=== PATIENT | male | born 1995 | race Caucasian/White ===

== ENCOUNTER 2021-08-18 11:36 | Emergency (ER) | payer SELFPAY ==
[2021-08-18 11:46] VITALS: BP 132/87; PULSE 86; RESP 20; TEMP 37.2; O2SAT 96
--- NOTE | 2021-08-18 11:50 | ED.URI ---
HPI - URI/Sore Throat General Chief Complaint: Upper Respiratory Infection Stated Complaint: Sore Throat Time Seen by Provider: 08/18/21 11:50 Source: patient and RN notes reviewed History of Present Illness HPI Narrative: Patient is a 26-year-old male who presents the urgent care with complaints of a sore throat and difficulty swallowing. Patient denies of any fever, chills, nausea, vomiting, ill contacts. Patient states that he woke up with a sore throat this morning. States that he does have a chronic allergies and has had a lot of postnasal drainage. Patient has not taken anything [id number] for his symptoms. No other acute complaints. No acute distress noted. Patient aware of the plan of care. Some parts of this dictation were generated by voice recognition software and may contain typographical and/or grammatical inaccuracies. Related Data Allergies Allergy/AdvReac Type Severity Reaction Status Date / Time No Known Allergies Allergy Verified 08/18/21 11:59 Review of Systems Review of Systems: CONSTITUTIONAL: Denies fever, chills, or sweats. EYES: Denies visual changes, redness, or discharge. ENT: Reports of sore throat, swollen tonsils and postnasal drainage CARDIOVASCULAR: Denies chest pain, palpitations, or edema. RESPIRATORY: Denies cough or dyspnea. GASTROINTESTINAL: Denies abdominal pain, nausea, vomiting, or diarrhea. GENITOURINARY: Denies dysuria or hematuria. SKIN: Denies rash or itching. MUSCULOSKELETAL: Denies back pain, joint pain, or myalgia. NEUROLOGIC: Denies headache, numbness, or weakness. All other systems reviewed are negative, except as documented in HPI. PMFSH Comments At the time of my signature, I reviewed and agree with the nursing past medical, surgical, social, and family history. There is no relevant family history pertinent to the patient complaint. Exam Narrative: GENERAL: This is a well-nourished, well-developed patient, in no apparent distress. HEAD: normocephalic, atraumatic. EYES: PERRL. Sclera clear/white. Vision is grossly intact. EARS: External ears normal, auditory canals clear and without drainage, TMs normal without perforation. Hearing grossly intact. NOSE: External nose normal with no obvious nasal discharge, nares without redness, no rhinorrhea. THROAT: Mucous membranes moist. Mild erythema to the posterior pharynx with mild bilateral tonsillar edema without exudate or ulceration. Moderate postnasal drainage. NECK: Neck supple, non-tender mild bilateral submandibular lymphadenopathy CARDIOVASCULAR: Regular rate and rhythm without murmurs, gallops, or rubs. RESPIRATORY: Clear to auscultation. Breath sounds equal bilaterally. No wheezes, rales, or rhonchi. SKIN: warm, intact with no suspicious lesions or rash, good texture and turgor. NEURO: awake, alert, and oriented to person, place and time. There were no obvious focal neurologic abnormalities. EXTREMITIES: No clubbing, cyanosis, or edema. Course Course Level of Care: Express Care Visit Vital Signs Vital signs: Vital Signs Temperature 98.9 F 08/18/21 11:46 Pulse Rate 86 08/18/21 11:46 Respiratory Rate 20 08/18/21 11:46 Blood Pressure 132/87 08/18/21 11:46 Pulse Oximetry 96 08/18/21 11:46 Temperature 98.9 F 08/18/21 11:46 Pulse Rate 86 08/18/21 11:46 Respiratory Rate 20 08/18/21 11:46 Blood Pressure 132/87 08/18/21 11:46 Pulse Oximetry 96 08/18/21 11:46 Reviewed MDM - URI/Sore Throat MDM Narrative Medical decision making narrative: Reviewed lab results with the patient. He is aware that strep swab was negative. Educated patient on culture we will call within 72 hours if culture is positive and antibiotics necessary. Advised the patient to use Tylenol/ibuprofen as needed for symptom relief. Use a daily antihistamine such as Claritin or Zyrtec. Complete the steroid regimen as prescribed. Be sure to eat and drink with the medication. Follow-up with your PCP within 2 to 5 d
== END 2021-08-18 12:15 | disposition home or self-care (01) ==
PROVIDERS: Emergency Provider Nurse Practitioner Family
DX: J03.90 Acute tonsillitis, unspecified (principal)
CPT/HCPCS: 87081; 87880; 99213; G0463

== ENCOUNTER 2022-01-24 10:41 | Emergency (ER) | payer SELFPAY ==
--- NOTE | 2022-01-24 10:42 | ED.URI ---
HPI - URI/Sore Throat General Chief Complaint: Upper Respiratory Infection Stated Complaint: Vomiting/Fever Time Seen by Provider: 01/24/22 10:42 Source: patient Mode of arrival: ambulatory Limitations: no limitations History of Present Illness HPI Narrative: Mr. Sumner is a 26-year-old male patient presenting to the clinic today with complaints of fever and vomiting x 1day. He reports his symptoms started yesterday. Reports that he has coughed so hard and had so much nasal drainage that he has been vomiting and having the upset stomach. He denies any abdominal pain. He reports his last bowel movement was this morning and was normal for him. He denies any chest pain or shortness of breath. Fever was as high as 103 ?F. elicited complaint: sore throat and nasal congestion Related Data Allergies Allergy/AdvReac Type Severity Reaction Status Date / Time No Known Allergies Allergy Verified 01/24/22 11:11 Review of Systems Review of Systems: Pertinent positives per HPI. Patient denies any rash, headache, visual changes, dizziness, cough, shortness of breath, chest pain, palpitations, diarrhea, constipation, abdominal pain, or any urinary issues. [facility] Comments At the time of my signature, I reviewed and agree with the nursing past medical, surgical, social, and family history. There is no relevant family history pertinent to the patient complaint. Exam Narrative: General: Well-developed, morbid obese, in no apparent distress Head: Normocephalic, atraumatic Eyes: Pupils equally round and reactive to light bilaterally, EOM intact, sclera and conjunctive clear, no discharge, lids normal Ears: TMs intact and clear, ear canals clear, no drainage, grossly hearing normal. Nose: Nares patent, clear nasal discharge, no inflammation, no sinus tenderness. Mouth: Oral pharynx without lesions or masses, good dentition, MMM. Postnasal drip, oropharynx red Neck: Supple, trachea midline, no enlargement of anterior or posterior cervical nodes, no thyroid masses or goiter palpable. Cardio: Regular rate and rhythm, s1 and s2 normal, no murmur appreciated. Resp: Clear to auscultation bilaterally, no rhonchi, rales, wheezing or rubs Abdomen: Soft, pliable, non-tenderness to palpation, no organomegly, no CVAT tenderness Course Course Emergency Course: Portions of this record may have been created with voice recognition software. Level of Care: Express Care Visit Vital Signs Vital signs: Vital signs reviewed MDM - URI/Sore Throat MDM Narrative Medical decision making narrative: At the time of visit patient is resting comfortably on the exam table. COVID testing was completed in the clinic today and was positive. I will send in a prescription for some Zofran for nausea as well as Paxlovid supportive measures were discussed with the patient he voiced understanding of discharge instructions and agrees to the treatment plan. Explained that the strep screen was sent and if it was to come back positive we will contact him and place him on some antibiotics. Differential Diagnosis Differential diagnosis: Likely upper respiratory infection, sinusitis, viral infection, bronchitis, influenza, pharyngitis and other (covid) Discharge Plan Discharge Clinical Impression: COVID-19 Patient Disposition: Home, Self-Care Condition: Stable Instructions: Antibiotic Form, How To Wash Your Hands (ED), Droplet Precautions (ED), COVID-19 (Coronavirus Disease 2019) (ED), How to Recover from COVID-19 at Home (ED) Additional Instructions: Covid testing positive in the clinic today. Strep culture sent to lab and we will contact you if results are positive and send in antibiotics. Take prescription medications only as prescribed-- paxlovid and zofran as prescribed. Increase fluids and stay well hydrated Tylenol/motrin for pain/fever Flonase and OTC antihistamines as directed Vicks vapor rub to open sinuses Sinus rinses for congestion
[2022-01-24 10:50] VITALS: BP 145/71; PULSE 133; RESP 20; TEMP 36.8; O2SAT 97
== END 2022-01-24 11:25 | disposition home or self-care (01) ==
LOC: EXPBETH 10:44
PROVIDERS: Emergency Provider Nurse Practitioner Family
DX: U07.1 COVID-19 (principal)
CPT/HCPCS: 87081; 87426; 99213; C9803; G0463

== ENCOUNTER 2022-03-15 19:07 | Emergency (ER) | payer SELFPAY ==
--- NOTE | 2022-03-15 19:16 | PC.NURSE ---
1914-- DURING TRIAGE PT STATED IT LOOKED BUSY AND HE NEEDED TO BE OUT OF HERE IN AN HOUR. RN INSTRUCTED PT IT WOULD BE POSSIBLY MORE THAN 1 HOUR BUT WE WILL SEE HIM. PT REFUSE TO STAY BECAUSE HE HAD TO BE SOMEWHERE. STATED HE WOULD POSSIBLY RETURN TOMORROW AM.
== END 2022-03-15 19:15 | disposition left against medical advice (07) ==
LOC: EXPBETH 19:09
PROVIDERS: Emergency Provider Registered Nurse
DX: Z53.21 Procedure and treatment not carried out due to patient leaving prior to being seen by health care provider (principal)
CPT/HCPCS: 99199

== ENCOUNTER 2022-07-07 08:15 | Emergency (ER) | payer SELFPAY ==
[2022-07-07 08:20] VITALS: BP 147/89; PULSE 96; RESP 16; TEMP 37.3; O2SAT 98
--- NOTE | 2022-07-07 08:32 | ED.URI ---
HPI - URI/Sore Throat General Chief Complaint: Upper Respiratory Infection Stated Complaint: congestion / cough Time Seen by Provider: 07/07/22 08:32 Source: patient, RN notes reviewed and old records reviewed Mode of arrival: ambulatory Limitations: no limitations History of Present Illness HPI Narrative: 27-year-old male who presents to [facility] with complaints cough, sinus congestion, and sore throat for the past 2 days. Patient states he has been taking Robitussin cough syrup for his cough. Patient has not had COVID vaccinations nor has he had a flu shot he did have COVID in January and did take Paxlovid antiviral treatment. Patient reports that he has been running a low grade temperature around 99.5F, denies any body aches or any chills. MD elicited complaint: cough, rhinorrhea and nasal congestion Pertinent past history: asthma (as child) Onset (ago): day(s) (2) Able to tolerate fluids by mouth: Yes Treatments prior to arrival: other (Robitussin) Related Data Home Medications Medication Instructions Recorded Confirmed No Home Medications 07/07/22 07/07/22 Allergies Allergy/AdvReac Type Severity Reaction Status Date / Time No Known Allergies Allergy Verified 07/07/22 08:32 Review of Systems Review of Systems: CONSTITUTIONAL: Reports malaise,no chills, sweats, low grade fever. EYES: Denies visual changes, redness, or discharge. ENT: Reports rhinorrhea, congestion, sinus pain, no otalgia, positive for sore throat. CARDIOVASCULAR: Denies chest pain, palpitations, or edema. RESPIRATORY: Reports cough.? Denies dyspnea. GASTROINTESTINAL: Denies abdominal pain, nausea, vomiting, diarrhea SKIN: Denies rash or itching. MUSCULOSKELETAL: Denies myalgia. NEUROLOGIC: Denies headache. All systems reviewed & are unremarkable except as noted in HPI and below PMFSH Social History Social History (Updated 07/07/22 @ 09:05 by Dahlia Sarmiento NP) Smoking status: Current every day smoker Tobacco type: e-cigarettes/vaping Gender identity (if verbalized by the patient): Male Comments At time of signature, agree with nursing past medical, surgical, social and family history. There is no relevant family history pertinent to the presenting complaint Exam Narrative: GENERAL: Well-appearing, well-nourished,obese unkept appearance, and in no acute distress. HEAD: Normocephalic EYES: PERRLA, conjunctivae clear ENT: Nares clear, turbinates edematous and erythematous, clear discharge. Mucous membranes moist. TM pearly arevalo with dull light reflex bilaterally; no tragal tenderness. Oropharynx erythematous without lesions. Tonsils not enlarged and without exudate, no drooling, no hoarseness, no trismus, uvula midline swollen, post nasal drainage noted. NECK: Supple. No lymphadenopathy CHEST: Clear to auscultation, breath sounds equal. No wheezing, rhonchi, rales, or stridor. No respiratory distress, speaks in full sentences.cough, SAO2 98% on room air HEART: Regular rate and rhythm. No murmur heard. SKIN: Warm, dry, no rash. NEURO: Alert and oriented x3. PSYCH: Normal mood and affect Course Course Emergency Course: Patient is aware of diagnosis, understands and agrees to treatment plan.? Anticipatory guidance given.? Patient agrees to follow-up as directed and is aware of reasons to seek care at the emergency department. Portions of this record may have been created with voice recognition software Level of Care: Express Care Visit Vital Signs Vital signs: Vital Signs Temperature 37.3 C 07/07/22 08:20 Pulse Rate 96 07/07/22 08:20 Respiratory Rate 16 07/07/22 08:20 Blood Pressure 147/89 H 07/07/22 08:20 Pulse Oximetry 98 07/07/22 08:20 Oxygen Delivery Room Air 07/07/22 08:20 Temperature 37.3 C 07/07/22 08:20 Pulse Rate 96 07/07/22 08:20 Respiratory Rate 16 07/07/22 08:20 Blood Pressure 147/89 H 07/07/22 08:20 Pulse Oximetry 98 07/07/22 08:20 Oxygen D
== END 2022-07-07 09:13 | disposition home or self-care (01) ==
PROVIDERS: Emergency Provider Registered Nurse; PCP Family Medicine
DX: J06.9 Acute upper respiratory infection, unspecified (principal); J02.9 Acute pharyngitis, unspecified; F17.290 Nicotine dependence, other tobacco product, uncomplicated
CPT/HCPCS: 87081; 87880; 99213; G0463